=== PATIENT | male | born 1995 | race Caucasian/White ===

== ENCOUNTER 2021-04-20 12:23 | Emergency (ER) | payer OTHER, SELFPAY ==
--- NOTE | 2021-04-20 12:38 | ED.NAVMDI ---
HPI - Nausea/Vomiting/Diarrhea General Chief complaint: Nausea/Vomiting/Diarrhea Stated complaint: abdominal pain Time Seen by Provider: 04/20/21 12:38 Source: patient and RN notes reviewed Mode of arrival: ambulatory Limitations: no limitations History of Present Illness HPI Narrative: Reinaldo is a 26-year-old male patient who ambulated to the [facility] today. Patient states he woke up this a.m. at 330 with nausea. Patient states he ate eggs for breakfast this morning and made the nausea even worse. Patient states he has not vomited. Patient denies any diarrhea. Patient states he has had decreased fluid intake due to the nausea. Patient states he had his Covid booster on 04/16/2021 MD elicited complaint: nausea Related Data Home Medications Medication Instructions Recorded Confirmed No Home Medications 04/20/21 04/20/21 Allergies Allergy/AdvReac Type Severity Reaction Status Date / Time No Known Allergies Allergy Verified 04/20/21 12:49 Review of Systems Review of Systems: CONSTITUTIONAL: Denies body aches, fever, chills, or sweats. EYES: Denies visual changes, redness, or discharge. ENT: Denies rhinorrhea, congestion, sore throat, or otalgia. CARDIOVASCULAR: Denies chest pain, palpitations, or edema. RESPIRATORY: Denies cough or dyspnea. GASTROINTESTINAL: Denies abdominal pain,, vomiting, or diarrhea. + nausea GENITOURINARY: Denies dysuria or hematuria. SKIN: Denies rash, itching, or wounds. MUSCULOSKELETAL: Denies back pain, joint pain, or myalgia. NEUROLOGIC: Denies headache, numbness, tingling, or weakness. PSYCH: Denies depression or anxiety. All systems reviewed & are unremarkable except as noted in HPI and below PMFSH Comments At time of signature, I have reviewed and agree with nursing past medical, surgical, social and family history unless otherwise noted. Please see nursing chart for further information. There is no relevant family history pertinent to the presenting complaint Exam Narrative: GENERAL: Well-appearing, well-nourished, and in no acute distress. HEAD: Normocephalic, atraumatic. EYES: EOMI. No redness or drainage. Conjunctivae normal. ENT: Mucous membranes pink and moist. Nares clear. No rhinorrhea. TMs normal bilaterally. Throat normal. Uvula midline. NECK: Normal AROM. Supple. No lymphadenopathy. CHEST: No respiratory distress. Clear to auscultation. ABDOMEN: Soft, nontender, nondistended, normal active bowel sounds; mild RUQ pain with deep palpation MUSCULOSKELETAL: No bony tenderness. EXTREMITIES: Normal range of motion. No edema. SKIN: Warm, dry, no rash. Capillary refill normal. Normal skin turgor. NEURO: No focal deficits. Alert and oriented x3. Gait steady. PSYCH: Normal affect. No signs of depression or anxiety. Course Vital Signs Vital signs: Vital Signs Temperature 36.8 C 04/20/21 12:39 Pulse Rate 55 L 04/20/21 12:39 Respiratory Rate 18 04/20/21 12:39 Blood Pressure 134/69 04/20/21 12:39 Pulse Oximetry 98 04/20/21 12:39 Temperature 36.8 C 04/20/21 12:39 Pulse Rate 55 L 04/20/21 12:39 Respiratory Rate 18 04/20/21 12:39 Blood Pressure 134/69 04/20/21 12:39 Pulse Oximetry 98 04/20/21 12:39 Reviewed. Pt has been instructed to follow up with his PCP regarding his elevated blood pressure today. MDM - Nausea/Vomiting/Diarrhea MDM Narrative Medical decision making narrative: Patient has had nausea since 3:30 AM. Patient will be given Zofran and instructions to increase his fluids and follow-up bland diet the next 2 to 3 days. Patient does have slight right upper quadrant pain he was instructed to follow-up with his primary care physician if this continues. Follow-up with your primary care physician for continued complaints or increase in symptoms in the next 3 to 5 days. Go to the ER urgently for severe abdominal pain with uncontrolled nausea vomiting and diarrhea Differential Diagnosis Differential diagno
[2021-04-20 12:39] VITALS: BP 134/69; PULSE 55; RESP 18; TEMP 36.8; O2SAT 98
== END 2021-04-20 13:07 | disposition home or self-care (01) ==
PROVIDERS: Emergency Provider Nurse Practitioner Family
DX: R11.0 Nausea (principal)
CPT/HCPCS: 99211; G0463